=== PATIENT | male | born 1970 | race Caucasian/White ===

== ENCOUNTER 2022-11-25 03:26 | Emergency (ER) | payer SELFPAY ==
[~2022-11-25] VITALS: Ht 177.8 cm; Wt 104.5 kg
[2022-11-25 03:30] VITALS: BP 142/91
[2022-11-25] MEDS ORDERED: sulfamethoxazole/trimethoprim DS (800/160mg) tablet PO ONE (04:00)
[2022-11-25] MEDS ORDERED: clindamycin 600mg/D5W 50ml 50 ML IV ONE (04:00)
[2022-11-25] MEDS ORDERED: ondansetron/PF 4mg/2ml inj IV ONE (04:00)
[2022-11-25] MEDS ORDERED: sulfamethoxazole/trimethoprim DS (800/160mg) tablet PO STA (04:19)
[2022-11-25] MEDS ORDERED: ONDA4TAB12 PO (05:12)
[2022-11-25] MEDS ORDERED: SULF1TAB49 PO (05:12)
[2022-11-25] MEDS ORDERED: CLIN-97 PO (05:12)
[2022-11-25] MEDS ORDERED: bacitracin 15gm ointment TP ONE (05:20)
== END 2022-11-25 05:28 | disposition home or self-care (01) ==
LOC: ER 03:26
DX: L03.90 Cellulitis, unspecified (principal); L02.01 Cutaneous abscess of face; Z88.0 Allergy status to penicillin
CPT/HCPCS: 10060; 96365; 96375; 99284; J2405; J3490